=== PATIENT | female | born 1935 | race Caucasian/White ===

== ENCOUNTER → 2016-08-28 | Outpatient (CLI) | payer MEDICARE ==
[~2016-08-28] MED LIST: AMLODIPINE BESY10 MG PO; ASPIRIN EC81 M1 PO; CENTRUM SILVER1 EAC2 PO; CITRACAL SOFT1 EACH PO; CLOPIDOGREL75 MG PO; LIVALO2 MG PO; LOPRESSOR PO; MAGNESIUM250 M1 PO; OMEPRAZOLE20 M1 PO; OSTEO BI-FLEX1 EAC2 PO; VITAMIN D310000 UNIT PO
--- NOTE | ~2016-08-28 | CT125 ---
[facility] A Service of [facility] RADIOLOGY TEXT RESULTS PATIENT: BERTHA RAMÍREZ [facility] UNIT #: [id number] AGE: [address]: Amadou Jones MD SEX: F ORDER DR: [id number] [facility] [address] [place], [place] [address] [id number] O MR#: [id number] Acc #: [id number] NAME: BERTHA RAMÍREZ. : 1935 SEX: F STUDY DATE/TIME: 08/28/2016 13:36 UNIT: [facility] ROOM: STUDY DESCRIPTION: CT Upper Ext Lt W Cont Attending Physician: Amadou Jones M.D. Referring Physician: Amadou Jones M.D. Ordering Physician: Amadou Jones M.D. Primary Care Physician: Primary Care Physician No MEDICAL IMAGING REPORT This report is preliminary unless electronic signature is present EXAM CT arthrogram left shoulder 08/28/2016 HISTORY 81-year-old female with left shoulder pain for 1 month. Order requests evaluation for rotator cuff tear. Patient is not a candidate for MRI secondary to pacing complex. No prior left shoulder surgery COMPARISON Conventional left shoulder arthrogram 08/28/2016 TECHNIQUE Helical scan performed through the left shoulder following the intraarticular administration of contrast. No IV contrast was given for the exam. Coronal and sagittal reformatted images. This CT exam was performed with one or more of the following radiation dose reduction techniques: automatic exposure control, adjustment of mA and/or kV according to patient size, and iterative reconstruction. FINDINGS There is intraarticular contrast noted in the left glenohumeral joint. No contrast extension into the subacromial/subdeltoid bursa to suggest a full-thickness rotator cuff tear. No evidence of a significant partial-thickness rotator cuff tear. Teres minor and subscapularis tendons are intact. Long biceps tendon appears intact and well positioned within the bicipital groove. No evidence of a displaced labral tear. Glenohumeral articular cartilage is intact. No loose intraarticular bodies. There are emjg-wy-thbvgpsg degenerative changes of the acromioclavicular joint. There is a very small subacromial spur. [facility] A Service of [facility] RADIOLOGY TEXT RESULTS PATIENT: BERTHA RAMÍREZ LOCATION: [facility] : 37 UNIT #: [id number] AGE: [address]: Amadou Jones MD SEX: F ORDER DR: Remaining visualized soft tissues are unremarkable. The visualized musculature appears within normal limits. Left-sided pacing complex. Visualized left lung field is clear. IMPRESSION 1. No evidence of a full-thickness or significant partial thickness rotator cuff tear. 2. No significant labral pathology. 3. 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 Dictated by... Bolivar Estrella M.D. THIS IS AN ELECTRONICALLY VERIFIED REPORT Bolivar Estrella M.D. at 08/29/2016 5:16 PM ARSH/kiersten TD: 08/29/2016 14:17 JOB #: [id number] MEDICAL IMAGING REPORT Page 1 of 1 COPY
--- NOTE | ~2016-08-28 | XA32 ---
[facility] A Service of [facility] & [facility] RADIOLOGY TEXT RESULTS PATIENT: BERTHA RAMÍREZ LOCATION: [facility] : 37 UNIT #: [id number] AGE: [address]: Amadou Jones MD SEX: F ORDER DR: [id number] [facility] [address] [place], [place] [address] [id number] O MR#: [id number] Acc #: [id number] NAME: BERTHA RAMÍREZ. : 1935 SEX: F STUDY DATE/TIME: 08/28/2016 13:10 UNIT: [facility] ROOM: STUDY DESCRIPTION: XA Arthrogram Shoulder Lt Attending Physician: Amadou Jones M.D. Referring Physician: Amadou Jones M.D. Ordering Physician: Amadou Jones M.D. Primary Care Physician: Primary Care Physician No MEDICAL IMAGING REPORT This report is preliminary unless electronic signature is present EXAM Fluoroscopically guided left shoulder arthrogram INDICATION Ms. Ramírez is a 81-year-old woman with a history of left shoulder pain for 1 month. She is to undergo a CT of the left shoulder for further evaluation. PROCEDURE This, risks, benefits and alternatives to the procedure were explained to the patient, and signed, informed consent was obtained. She was placed supine on angiographic table and prepped and draped in the usual sterile fashion. Time-out was performed as per protocol. Skin and subcutaneous tissues were anesthetized with buffered lidocaine. A 22-gauge spinal needle was advanced in the joint space. Contrast injection confirmed location within the joint space and additional contrast was instilled. The patient did have some extravasation of contrast into the adjacent shoulder musculature. Needle was removed and manual pressure was applied until hemostasis was obtained. Additional fluoroscopic images were obtained in both abducted and adducted position. Patient was subsequently transferred to CT. Total fluoroscopy time was 1 minute and AK was 5 mGy. IMPRESSION Technically successful fluoroscopically guided left shoulder arthrogram as noted above. Fluoroscopy was used during the procedure and permanent images were saved. I did not see any evidence of rotator cuff tear on this examination. Dictated by... Alicja PintoD. THIS IS AN ELECTRONICALLY VERIFIED REPORT Nyla Strong M.D. at 09/03/2016 5:08 PM [facility] A Service of [facility] RADIOLOGY TEXT RESULTS PATIENT: BERTHA RAMÍREZ LOCATION: [facility] : 39 UNIT #: [id number] AGE: [address]: Amadou Jones MD SEX: F ORDER DR: FABIO/nilam TD: 09/03/2016 10:49 JOB #: [id number] MEDICAL IMAGING REPORT Page 1 of 1 COPY
== END | disposition home or self-care (01) ==
LOC: CIVR 12:14
PROC: BP09ZZZ Plain Radiography of Left Shoulder (ICD-10-PCS; principal; 2016-08-28)
DX: M19.012 Primary osteoarthritis, left shoulder (principal); M25.712 Osteophyte, left shoulder
CPT/HCPCS: 73040; 73201; 77002; Q9967